=== PATIENT | male | born 1955 | race Caucasian/White ===

== ENCOUNTER 2017-03-20 09:16 | Emergency (ER) | payer BC ==
[~2017-03-20] VITALS: Ht 182.9 cm; Wt 128.9 kg
[2017-03-20] MEDS ORDERED: BACTRIM,SEPT1 TABLET PO (13:02)
[2017-03-20 13:23] VITALS: BP 153/91
== END 2017-03-20 13:24 | disposition home or self-care (01) ==
LOC: EME 09:16
PROC: 0H96XZZ Drainage of Back Skin, External Approach (ICD-10-PCS; principal; 2017-03-20)
DX: L02.212 Cutaneous abscess of back [any part, except buttock and flank] (principal); R73.09 Other abnormal glucose; Z87.891 Personal history of nicotine dependence
CPT/HCPCS: 76536; 99281; 99284